=== PATIENT | female | born 1980 | race Caucasian/White ===

== ENCOUNTER 2020-04-23 10:58 | Outpatient (REF) | payer OTHER, SELFPAY ==
[2020-04-23 14:11] LABS: Hematocrit 47.2 % (37-47); Hemoglobin 15.7 g/dl (12.0-16.0); Mean Corpuscular HGB Conc 33.3 g/dl (31.0-35.0); Mean Corpuscular Hemoglobin 30.3 pg (27.0-33.0); Mean Corpuscular Volume 90.9 fL (80-98); Mean Platelet Volume 11.7 fL (9.4-12.3); Platelet Count 199 X10*3/uL (160-400); Red Blood Count 5.19 X10*6/uL (4.20-5.50); Red Cell Distribution Width 12.2 % (11.0-16.0); White Blood Count 7.4 X10*3/uL (4.8-10.8)
[2020-04-23 14:32] LABS: Alanine Aminotransferase 16 U/L (0-31); Albumin Level 4.7 g/dL (3.5-5.0); Alkaline Phosphatase 50 U/L (39-117); Anion Gap 12 (12-20); Aspartate Amino Transferase 17 U/L (5-31); Bilirubin Direct 0.2 mg/dL (0.0-0.5); Bilirubin Total 0.7 mg/dL (0.0-1.0); Blood Urea Nitrogen 11 mg/dL (9-16); Calcium 9.4 mg/dL (8.4-10.2); Carbon Dioxide 24 mmol/L (22-29); Chloride 106 mmol/L (96-108); Cholesterol 191 mg/dL; Estimated Glomerular Filt Rate > 60; Glucose Fasting 83 mg/dL (60-99); HDL Cholesterol 63 mg/dL; LDL Cholesterol Calculated 116 mg/dl; Potassium 5.2 mmol/L (3.3-5.1); Sodium 137 mmol/L (135-145); Total Protein 7.6 g/dL (6.5-8.0); Triglycerides 64 mg/dL
[2020-04-23 14:54] LABS: TSH reflex Free T4 1.17 uIU/mL (0.32-4.0)
== END 2020-04-23 10:59 | disposition home or self-care (01) ==
LOC: HO.WFDLDS 10:58
PROVIDERS: Visit Provider Hospitalist
DX: Z00.00 Encounter for general adult medical examination without abnormal findings (principal)
CPT/HCPCS: 36415; 80048; 80061; 80076; 84443; 85027

== ENCOUNTER 2021-03-05 07:18 | Emergency (ER) | payer OTHER, SELFPAY ==
[2021-03-05 07:21] VITALS: BP 112/78; PULSE 79; RESP 16; TEMP 36.9; O2SAT 99; BMI 21.2
--- NOTE | 2021-03-05 07:48 | ED_ITS ---
HPI - Back Pain/Injury General Chief Complaint: Back Pain/Injury Stated Complaint: unable to walk Time Seen by Provider: 03/05/21 07:32 Source: patient Mode of arrival: ambulatory Limitations: no limitations History of Present Illness MD elicited complaint: back pain Onset (ago): day(s) (2) Timing: constant Severity: severe Similar Symptoms Previously: No Quality: sharp Location: lumbar spine Radiation: right upper leg Exacerbating factors: movement, walking and coughing/sneezing (felt a pop after cough this AM) Relieving factors: supine Context: other (woke up this way, went to Rx NSAIDs and flexeril - went to go to work this AM and cough felt a pop and pain down R leg) Associated symptoms: denies other symptoms Treatments prior to arrival: NSAIDS Work related injury: No Related Data Previous Rx's Medication Instructions Recorded cyclobenzaprine 5 mg tablet 5 mg PO BID PRN 7 Days #14 tab 03/04/21 meloxicam 15 mg tablet 15 mg PO DAILY PRN 10 Days #10 tab 03/04/21 diazepam 5 mg tablet (Valium) 5 mg PO TID PRN #12 tab 03/05/21 famotidine 20 mg tablet (Pepcid) 20 mg PO DAILY PRN #30 tab 03/05/21 ibuprofen 600 mg tablet 600 mg PO Q6H PRN #30 tab 03/05/21 lidocaine 4 % topical patch 1 patch TOPICAL DAILY PRN #10 ea 03/05/21 Allergies Allergy/AdvReac Type Severity Reaction Status Date / Time No Known Allergies Allergy Verified 03/04/21 09:11 [No Known Allergies*] Review of Systems Review of Systems: Constitutional : No Weight loss, No Fever, No Chills, ENT/Mouth : No Hearing loss, No Ear Pain, No Nasal Congestion, No Sinus Pain, No Hoarseness, No sore throat, No Rhinorrhea, No Swallowing Difficulty Cardiovascular : No Chest Pain, No SOB Respiratory : No Cough, No Dyspnea Gastrointestinal : No Nausea, No Vomiting, No Diarrhea, No abdominal Pain, No Hematochezia, No Melena Genitourinary : No Dysuria, No Urinary Frequency, No Hematuria, No Urinary Incontinence, Musculoskeletal : positive back pain Skin : No Skin Lesions, No rash Neuro : No Weakness, No Numbness, No Paresthesias, no loss of bowel or bladder incontinence, no saddle anesthesia All other systems reviewed and are negative [facility] Past Medical History Medical History No known health problems Surgical History History of cholecystectomy Family History Family History Paternal Grandmother Uterine cancer Ovarian cancer GIST (gastrointestinal stroma tumor), malignant, colon Social History Social History (Updated 03/05/21 @ 08:25 by Gaby Morgan DO) Alcohol intake: never Patient Tobacco Use Status: Current everyday Tobacco user Cigarette Packs Per Day: 0.50 Cigarettes Per Day: 10 Use of substances other than those prescribed or required for medical reasons: Yes Advance Directives: No Advance Directives Information Provided: No Patient : No Physical Exam Vital Signs: Vital Signs: Last Vital Signs Temp 98.8 F 03/05/21 08:16 Pulse 53 03/05/21 08:16 Resp 16 03/05/21 08:16 BP 114/63 03/05/21 08:16 Pulse Ox 99 03/05/21 08:16 BMI result Body Mass Index 21.2 Appearance: Alert. Oriented X3. No acute distress. Eyes: Pupils equal, round and reactive to light. ENT: Pharynx normal. Neck: Normal inspection. Neck supple. CVS: Normal heart rate and rhythm. Pulses normal. Respiratory: No respiratory distress. Breath sounds normal. Abdomen: Soft and nontender. Back: ttp and spasm R lower lumbar area Skin: Skin warm and dry. Normal skin color. Normal skin turgor. Extremities: No lower extremity edema. No calf ttp Neuro: Oriented X 3. No motor deficit. No sensory deficit. SILT inner thigh, L5 5/5 bilaterally, + R straight leg at 30 degress, 2+ bilateral patella and achilles reflex, normal rectal tone Course Course Course Narrative: patient feels much better stable for DC can ambulate stable for DC MDM - Back Pain/Injury MDM Narrative Medical decision making narrative: 40 yo female with no sig PMH, no IVDA, no AC therapy here with c/o low back pain x 2 days no trauma. Treated at with medications went to work today felt a pop radiating down R leg - she has no b/b incontinence, no saddle anesthesia - no red flags, she is neuro intact. No CE symptoms. At this time will treat pain place on steroids. Suspect herniated disc. Discussed expectant course with patient. Discharge Plan Discharge Clinical Impression: Lumbar radiculopathy, Lumbar disc herniation Patient Disposition: Home, Self-Care Instructions: Lumbar Radiculopathy (ED) Additional Instructions: return to ED for any worsening symptoms or concerns you will need physical therapy please call your doctor as soon as possible STOP meloxicam and take motrin ONLY TAKE THE PEPCID (FAMOTIDINE DAILY WHILE ON STEROIDS) Prescriptions: New lidocaine 4 % adhesive patch,medicated 1 patch topical DAILY PRN (Reason: pain) Qty: 10 RF: 0 famotidine [Pepcid] 20 mg tablet 20 mg PO DAILY PRN (Reason: abdominal discomfort) Qty: 30 RF: 0 ibuprofen 600 mg tablet 600 mg PO Q6H PRN (Reason: pain) Qty: 30 RF: 0 diazepam [Valium] 5 mg tablet 5 mg PO TID PRN (Reason: muscle spasm) Qty: 12 RF: 0 No Action meloxicam 15 mg tablet 15 mg PO DAILY PRN (Reason: lower back pain) 10 Days Qty: 10 RF: 0 cyclobenzaprine 5 mg tablet 5 mg PO BID PRN (Reason: muscle spasm) 7 Days Qty: 14 RF: 0 Referrals: Clarisa Rivera NP [Primary Care Provider] - 2 days Stand Alone Forms: Work/School Release
[2021-03-05 08:16] VITALS: BP 114/63; PULSE 53; RESP 16; TEMP 37.1; O2SAT 99
[2021-03-05] MEDS: Lidocaine 4 % Patch ADH..PATCH 1 PATCH TRANSDERMA (09:14)
[2021-03-05] MEDS: 0.9 % Sodium Chloride 1,000 ML 999 ML IV (09:17)
[2021-03-05] MEDS: methylPREDNISolone Sod Succ 125 MG/2 ML VIAL IVPUSH (09:19)
[2021-03-05] MEDS: LORazepam 2 MG/ML VIAL 1 MG IVPUSH (09:21)
[2021-03-05] MEDS: Ketorolac Tromethamine 30 MG/ML VIAL IVPUSH (09:22)
[2021-03-05] MEDS: Famotidine/PF 20 MG/2 ML VIAL IVPUSH (09:28)
[2021-03-05 10:38] VITALS: BP 112/65; PULSE 67; RESP 16; O2SAT 99
== END 2021-03-05 10:46 | disposition home or self-care (01) ==
PROVIDERS: Emergency Provider Emergency Medicine; PCP Hospitalist
DX: M54.16 Radiculopathy, lumbar region (principal); M51.26 Other intervertebral disc displacement, lumbar region; F17.200 Nicotine dependence, unspecified, uncomplicated
CPT/HCPCS: 96361; 96374; 96375; 99284; J1885; J2060; J2930

== ENCOUNTER 2021-03-09 10:51 | Outpatient (REF) | payer OTHER, SELFPAY ==
[2021-03-09 14:52] LABS: Alanine Aminotransferase 18 U/L (0-31); Albumin Level 4.6 g/dL (3.5-5.0); Alkaline Phosphatase 50 U/L (39-117); Anion Gap 11 (12-20); Aspartate Amino Transferase 15 U/L (5-31); Bilirubin Total 0.4 mg/dL (0.0-1.0); Blood Urea Nitrogen 13 mg/dL (9-16); Carbon Dioxide 24 mmol/L (22-29); Chloride 108 mmol/L (96-108); Estimated Glomerular Filt Rate > 60; Glucose Random 83 mg/dL (60-115); Sodium 138 mmol/L (135-145); Total Protein 7.7 g/dL (6.5-8.0)
== END 2021-03-09 10:52 | disposition home or self-care (01) ==
LOC: HO.WFDLDS 10:51
PROVIDERS: Visit Provider Hospitalist
DX: M54.16 Radiculopathy, lumbar region (principal)
CPT/HCPCS: 36415; 80053

== ENCOUNTER 2021-11-17 07:51 | Emergency (ER) | payer OTHER, SELFPAY ==
[2021-11-17 08:20] VITALS: BP 144/97; PULSE 86; RESP 16; TEMP 37.2; O2SAT 98; BMI 21.6
--- NOTE | 2021-11-17 08:51 | ED.FEVER ---
HPI - Fever General Chief Complaint: Fever Stated Complaint: Covid Positive Time Seen by Provider: 11/17/21 08:34 Source: patient Mode of arrival: ambulatory Limitations: no limitations History of Present Illness MD elicited complaint: fever and other (headaches, body aches, + COVID test at home) Onset (ago): day(s) (2) Context: other (vaccinated x 3) Exacerbating factors: nothing Relieving factors: acetaminophen and ibuprofen Associated symptoms: chills, headache and other (headaches) Treatments prior to arrival fever: none Related Data Previous Rx's Medication Instructions Recorded diazepam 5 mg tablet (Valium) 5 mg PO TID PRN muscle spasm #12 03/05/21 tabs lidocaine 4 % topical patch 1 patch topical DAILY PRN pain #10 03/05/21 ea cyclobenzaprine 5 mg tablet 10 mg PO TID PRN muscle spasm 1 03/09/21 month #90 tabs gabapentin 300 mg capsule 300 mg PO BID 1 month #60 caps 03/09/21 famotidine 20 mg tablet (Pepcid) 20 mg PO DAILY PRN abdominal 03/24/21 discomfort #90 tabs ibuprofen 600 mg tablet 600 mg PO Q6H PRN for pain #90 tabs 03/24/21 ondansetron 4 mg disintegrating 4 mg PO Q8H PRN nausea and 11/17/21 tablet vomiting #20 tabs Allergies Allergy/AdvReac Type Severity Reaction Status Date / Time No Known Allergies Allergy Verified 03/24/21 11:45 [No Known Allergies*] Review of Systems Review of Systems: Constitutional : positive Fever, positive Chills, positive fatigue, positive Malaise ENT/Mouth : positive sore throat, positive runny nose Eyes: No Discharge Cardiovascular : No Chest Pain, No SOB Respiratory : No Cough, No Sputum Gastrointestinal : No Nausea, No Vomiting, No Diarrhea Genitourinary : No Dysuria, No Urinary Frequency Musculoskeletal : positive Myalgia Skin : No rash Neuro : pos Headache PMFSH Past Medical History Attestation statement: The following information was validated with the patient. Medical History No known health problems Surgical History History of cholecystectomy Family History Family History Paternal Grandmother Uterine cancer Ovarian cancer GIST (gastrointestinal stroma tumor), malignant, colon Other Mental health disorder Substance use disorder Social History Social History Housing: House Alcohol intake: never Patient Tobacco Use Status: Current everyday Tobacco user Cigarette Packs Per Day: 0.50 Cigarettes Per Day: 10 Advance Directives: No Advance Directives Information Provided: Yes Current occupational status: employed Physical Exam Vital Signs: Vital Signs: Last Vital Signs Temp 99 F 11/17/21 08:20 Pulse 86 11/17/21 08:20 Resp 16 11/17/21 08:20 BP 144/97 H 11/17/21 08:20 Pulse Ox 98 11/17/21 08:20 O2 Del Method 11/17/21 08:20 BMI result Body Mass Index 21.6 Appearance: Alert. Oriented X3. No acute distress. Eyes: Pupils equal, round and reactive to light. ENT: Pharynx normal. Neck: Normal inspection. Neck supple. CVS: Normal heart rate and rhythm. Pulses normal. Respiratory: No respiratory distress. Breath sounds normal. Abdomen: Soft and non-tender. Skin: Skin warm and dry. Normal skin color. Normal skin turgor. Extremities: No lower extremity edema. No calf ttp Neuro: Oriented X 3. No motor deficit. No sensory deficit. MDM - Fever MDM Narrative Medical decision making narrative: 41 yo female with hx of migraines otherwise no medical problems vaccinated x 3 for COVID here with 2 days of symptoms - headaches, not feeling well, fevers - has normal O2 sats, COVID + test at home today. Wants confirmatory test. Declines Paxlovid after discussing possible side effects. Does not have any other qualifying conditions. Stable for outpatient treatment. Given precautions to return. Discharge Plan Discharge Clinical Impression: COVID-19 Patient Disposition: Home, Self-Care Instructions: COVID-19 (Coronavirus Disease 2019) (ED) Additional Instructions: return to ED for any worsening symptoms or concerns if you become so short of breath that you cannot walk to your own bathroom seek immediate care tylenol and motrin for pain, stay hydrated quarantine, protect others COVID + test Prescriptions: New ondansetron 4 mg tablet,disintegrating 4 mg PO Q8H PRN (Reason: nausea and vomiting) Qty: 20 0RF No Action ibuprofen 600 mg tablet 600 mg PO Q6H PRN (Reason: for pain) Qty: 90 1RF lidocaine 4 % adhesive patch,medicated 1 patch topical DAILY PRN (Reason: pain) Qty: 10 0RF Rx Instructions: may leave on for up to 12 hrs diazepam [Valium] 5 mg tablet 5 mg PO TID PRN (Reason: muscle spasm) Qty: 12 0RF cyclobenzaprine 5 mg tablet 10 mg PO TID PRN (Reason: muscle spasm) 30 Days Qty: 90 0RF Rx Instructions: 1 tab for moderate spasms and 2 tabs for severe spasma gabapentin 300 mg capsule 300 mg PO BID 30 Days Qty: 60 0RF Rx Instructions: I advised patient that she can take 1 at bedtime. I am recommending that she can increase to 2 at bedtime after 5 days of tolerating the medication. famotidine [Pepcid] 20 mg tablet 20 mg PO DAILY PRN (Reason: abdominal discomfort) Qty: 90 1RF Stand Alone Forms: Work/School Release
[2021-11-17 09:22] LABS: COVID-19 Test Positive (Negative); IDNOW Serial# 9DB6401D
--- NOTE | 2021-11-17 09:49 | PC.NURSE ---
PT EVALUATED BY DR FRANCO. PLAN IS FOR DC HOME. PT AGREEABLE TO PLAN. PT AWAKE, ALERT AND ORIENTED X 3. SKIN WARM AND DRY. RESP UNLABORED. DENIES N/V PRESENTLY SPEAKING IN FULL CLEAR SENTENCES.
== END 2021-11-17 09:51 | disposition home or self-care (01) ==
PROVIDERS: Emergency Provider Emergency Medicine; PCP Hospitalist
DX: U07.1 COVID-19 (principal); R51.9 Headache, unspecified; F17.210 Nicotine dependence, cigarettes, uncomplicated
CPT/HCPCS: 87635; 99282; 99283

== ENCOUNTER 2023-02-28 11:03 | Outpatient (REF) | payer OTHER, SELFPAY ==
[2023-02-28 16:53] LABS: CT PCR NOT DETECTED (Not Detect.); NG PCR NOT DETECTED (Not Detect.)
[2023-03-01 13:00] LABS: BV Int Neg Control Negative (Negative); BV Int Pos Control Positive (Positive)
[2023-03-04 02:04] LABS: HPV mRNA E6/E7 rflx Not Detected (Not Detected)
== END 2023-02-28 11:04 | disposition home or self-care (01) ==
LOC: HO.LNP 11:03
PROVIDERS: PCP Hospitalist; Visit Provider Advanced Practice Midwife
DX: Z12.4 Encounter for screening for malignant neoplasm of cervix (principal); Z11.51 Encounter for screening for human papillomavirus (HPV); Z20.2 Contact with and (suspected) exposure to infections with a predominantly sexual mode of transmission
CPT/HCPCS: 0353U; 87480; 87510; 87624; 87660; 88142

== ENCOUNTER 2023-02-28 11:03 | Outpatient (AMB) | payer OTHER, SELFPAY ==
--- NOTE | 2023-02-28 11:12 | MHC.OFFVIS ---
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 She has had 1 daughter 22 years ago exactly today. [facility] vag[facility] with no complications. She gets regular periods sometimes 27 sometimes 28 sometimes 29 days. She gets bad lower back discomfort with her periods and she has been told her uterus is retroverted. She is in a relationship with a girlfriend and they live together. They both smoke cigarettes every now and then she thinks about quitting but then she thinks she has been smoking so long that the damage is done. 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 Her last Pap smear and stock worker exam was probably 7 years ago in some place in [place]. [facility] Medical History No known health problems Surgical History History of cholecystectomy Family History Paternal Grandmother Uterine cancer Ovarian cancer GIST (gastrointestinal stroma tumor), malignant, colon Other Mental health disorder Substance use disorder Social History Housing: House Alcohol intake: never Patient Tobacco Use Status: Current everyday Tobacco user Cigarette Packs Per Day: 0.50 Cigarettes Per Day: 10 Current occupational status: employed Female Reproductive History Menstrual Age of Menarche: 12 Duration of menses: 3-5 days Date of last menstrual period: 02/08/23 control method: none Total pregnancies: 1 Full term: 1 Number of Living Children: 1 Physical Exam Vital Signs: Last Vital Signs BP 122/80 02/28/23 11:13 BMI result Body Mass Index 22.0 Const General: healthy appearing, comfortable, no acute distress, well developed and alert Nutritional Appearance: average body habitus Orientation/consciousness: patient oriented x3 Limitations: no limitations HEENT Head: Yes normocephalic Neck Neck: Yes normal visual inspection Thyroid: Thyroid normal Chest Chest palpation & inspection: normal inspection of the chest Breast/axilla inspection: normal inspection of the breasts and normal inspection of the axillae Breast/axilla palpation: normal palpation of the breasts and normal palpation of the axillae Resp Effort & Inspection: normal respiratory effort GI Inspection: Yes normal to inspection, No Abdominal wall edema and No distended Palpation (GI): Soft to palpation and nontender Other: External exam within normal limits vagina pink moist. Cervix multiparous firmly closed pink smooth mobile nontender. Uterus is small retroverted nontender. Adnexa nontender not enlarged good tone with Kegel discharge is clear and scant. General: Yes bladder normal to palpation External Female Exam: normal external appearance and normal appearance of the urethra Speculum Exam - Vagina: normal appearance of the vagina, normal palpation and normal vaginal discharge Speculum Exam - Cervix: normal appearance of the cervix, normal palpation and nontender Bimanual exam- vagina & uterus: normal bimanual exam, normal palpation, uterine size normal, bladder normal to palpation, consistency normal, normal palpation, uterine mobility normal, uterine shape normal, No Cervical tenderness present, non-tender and no cervical motion tenderness Bimanual Exam- Adnexa, other: normal adnexae, no masses, normal and No adnexal tenderness Skin Other: Hand slightly dusky consistent with smoking. Neuro General: patient oriented x3 Assessment & Plan Assessment & Plan (1) Smoker: Code(s): F17.200 - Nicotine dependence, unspecified, uncomplicated (2) Cervical cancer screening: Code(s): Z12.4 - Encounter for screening for malignant neoplasm of cervix (3) Breast cancer screening: Code(s): Z12.39 - Encounter for other screening for malignant neoplasm of breast (4) Well woman exam with routine gynecological exam: Code(s): Z01.419 - Encounter for gynecological examination (general) (routine) without abnormal findings (5) Encounter for screening examination for sexually transmitted disease: Code(s): Z11.3 - Encounter for screening for infections with a predominantly sexual mode of transmission Plan -----Discussed in this visit the following: healthy balanced diet, regular and consistent exercise, getting recommended health screens, doing the best she can for her particular health concerns, kegel exercises, pap smear screening and followup recommendations, mammography screening and SBE, normal changes in cycles in her life stage--- . Mammogram ordered. Discussed readiness for smoking cessation. Discussed motivation and risks of smoking and that yes long-term damage may have been done but she would improve her health by quitting. She does think about. 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 Discussed the normal range of menstrual cycles and she sounds like she is completely normal and when she has kept track that reassured her some of the same. She feels she gets about 10,000 steps a day at her job. Offered other testing for STIs via blood work but she is not interested and does not feel she needs to. Orders: Orders Bacterial Vaginosis Panel Today Z11.3 - Encounter for screening for infections with a predominantly sexual mode of transmission CT NG by PCR Today Z11.3 - Encounter for screening for infections with a predominantly sexual mode of transmission Pap Smear Today Z12.4 - Encounter for screening for malignant neoplasm of cervix MM tomosynthesis screening BI Today F17.200 - Nicotine dependence, unspecified, uncomplicated, Z01.419 - Encounter for gynecological examination (general) (routine) without abnormal findings, Z11.3 - Encounter for screening for infections with a predominantly sexual mode of transmission, Z12.31 - Encounter for screening mammogram for malignant neoplasm of breast, Z12.39 - Encounter for other screening for malignant neoplasm of breast, Z12.4 - Encounter for screening for malignant neoplasm of cervix Coding Level of Care Code New Pt Prev Care 40-64y([id number]) Diagnoses Smoker F17.200 Cervical cancer screening Z12.4 Breast cancer screening Z12.39 Well woman exam with routine gynecological exam Z01.419 Encounter for screening examination for sexually transmitted disease Z11.3
[2023-02-28 11:13] VITALS: BP 122/80; BMI 22.0
== END 2023-02-28 11:51 | disposition home or self-care (01) ==
PROVIDERS: PCP Hospitalist; Visit Provider Advanced Practice Midwife
DX: Z01.419 Encounter for gynecological examination (general) (routine) without abnormal findings (principal); F17.200 Nicotine dependence, unspecified, uncomplicated; Z12.4 Encounter for screening for malignant neoplasm of cervix; Z12.39 Encounter for other screening for malignant neoplasm of breast; Z11.3 Encounter for screening for infections with a predominantly sexual mode of transmission
CPT/HCPCS: 99386

== ENCOUNTER 2023-07-04 08:24 | Outpatient (AMB) | payer OTHER, SELFPAY ==
--- NOTE | 2023-07-04 08:40 | MHC.PC.OV ---
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 Is last menstrual period known: No Patient : No Allergies No Known Allergies [No Known Allergies*] Allergy (Verified 07/04/23 09:00) Medication List - Last Reconciled 07/04/23 by MAIRA Mckeon No Known Home Meds Tobacco use date assessed: 07/04/23 Dental Screening Dental Screen Date: 07/04/23 Did you have a dental visit in the last 12 months?: Yes Did you have a dental problem in the last 6 months where you did not have access to dental care?: No Was dental information given to patient?: Patient has dentist HPI HPI Comments History of Present Illness Details 42-year-old female with chronic GERD, current smoker, chronic back pain, headaches, MDD, MOLLY Status post cholecystectomy Health maintenance Pap 02/28/2023 within normal limits Mammo over due, reports she as an order just needs to make 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 This started in March of 2023. She reports that the urine looks normal in the toilet. With no blood. However when she wipes she notices nicolasa blood. She denies any vaginal discharge or any blood on her underpants or pads. She reports normal periods. However she can not remember the date of her last menstrual period. Reports that she is not sexually active with men. Therefore there is no chance of . She does have positive BV diagnosis in February of 2023. This was not treated. She has not currently having any symptoms. Her Pap smear is up-to-date and was within normal limits with the exception of some inflammatory cells. She is unfortunately a current smoker. She denies any nausea, vomiting, abdominal pain,back pain. Admit some mild cramping. Reports that her weight is stable. [facility] Medical History No known health problems Surgical History History of cholecystectomy Family History Paternal Grandmother Uterine cancer Ovarian cancer GIST (gastrointestinal stroma tumor), malignant, colon Other Mental health disorder Substance use disorder Social History Housing: House Alcohol intake: never Patient Tobacco Use Status: Current everyday Tobacco user Cigarette Packs Per Day: 0.50 Cigarettes Per Day: 10 Years Smoked: 25 e-Cigarette/Vaping Use: Never Used Current occupational status: employed Current occupation: [employer] Current occupational exposures/hazards: No Cognitive needs: No Hearing needs: No Vision needs: No Female Reproductive History Menstrual Age of Menarche: 12 Questionnaire PHQ-9 Over the last 2 weeks, how often have you been bothered by any of the following problems? 1. Little interest or pleasure in doing things: several days 2. Feeling down, depressed, or hopeless: several days 3. Trouble falling or staying asleep, or sleeping too much: nearly every day 4. Feeling tired or having little energy: nearly every day 5. Poor appetite or overeating: nearly every day 6. Feeling bad about yourself - or that you are a failure or have let yourself or your family down: several days 7. Trouble concentrating on things, such as reading the newspaper or watching television: more than half the days 8. Moving or speaking so slowly that other people could have noticed. Or the opposite - being so fidgety or restless that you have been moving around a lot more than usual: several days 9. Thoughts that you would be better off or of hurting yourself in some way: not at all Total score: 15 Depression Screening Interpretation: Positive Depression Screening Follow-up: Follow-up Visit Requested Depression Screening Done: Yes 34116 - PHQ-9 Billing: Yes Source: Developed by Drs. Joce Burleson, Alla Enriquez, Andriy Power and colleagues, with an educational samuel from [employer]. Thrive Questionnaire Date Thrive assessed: 07/04/23 I am a: Patient What is your living situation today?: I have a steady place to live Within the past 12 months, did the food you bought not last and you didn't have the money to get more?: Never true Within the past 12 months, did you worry whether your food would run out before you got money to buy more?: Never true Do you have trouble paying for medicines?: No Do you have trouble getting transportation to medical appointments?: No Do you have trouble paying your heating and electricity bill?: No Do you have trouble taking care of your child, family member or friend?: No Do you have trouble with day-to-day activities such as bathing, preparing meals, shopping, managing finances, etc.?: No Are you currently unemployed and looking for a job?: No Are you interested in more education?: No Please select the resources that you would like help with: None Currently or been in a relationship where the following occur: no concerns reported THRIVE Score: 0 AUDIT C Alcohol Use Questionnaire (AUDIT-C) 1. How often do you have a drink containing alcohol?: Never 3. How often do you have six or more drinks on one occasion?: Never Total Score: 0 Score Reviewed/Action Taken: Yes MOLLY-7 AMB Questionnaire MOLLY-7 Date MOLLY - 7 assessed: 07/04/23 Feeling nervous, anxious, or on edge: 3 = Nearly every day Not being able to stop or control worryin = Nearly every day Worrying too much about different things: 3 = Nearly every day Trouble relaxin = Nearly every day Being so restless that it is hard to sit still: 1 = Several days Becoming easily annoyed or irritable: 2 = More than half the days Feeling afraid as if something awful might happen: 3 = Nearly every day Total MOLLY-7 score (0-4 normal; 5-9 mild; 10-14 moderate; 15-21 severe): 18 Source: Developed by Drs. Joce Burleson, Alla Enriquez, Andriy Power and colleagues, with an educational samuel from [employer]. MOLLY-7 Assessment Billing MOLLY-7 Assessment Tool: MOLLY-7 Assessment 95060 Review of Systems Const All systems reviewed & are unremarkable except as noted in HPI and below Physical exam (Primary Care) Vital Signs: Last Vital Signs Temp 98.4 F 07/04/23 08:47 Pulse 57 07/04/23 08:47 Resp 12 07/04/23 08:47 BP 102/63 07/04/23 08:47 Pulse Ox 99 07/04/23 08:47 Oxygen Delivery Method Room Air 07/04/23 08:47 BMI result Body Mass Index 21.1 Tobacco/Smoking Status: Tobacco use Status Tobacco use date assessed 07/04/23 07/04/23 08:51 Patient Tobacco Use Status Current everyday Tobacco 07/04/23 08:51 e-Cigarette/Vaping Use Never Used 07/04/23 08:51 Are you ready to quit: No Tobacco cessation counseling provided: Yes Items discussed: Other Relapse Prevention: discussed the importance of a supportive environment, discussed extending NRT, discussed negative mood or depression after quitting, weight gain after smoking is common and discussed dietary, exercise and/or lifestyle changes Number of minutes spent counselin CPT code: 52621 - 4-10 Minutes PHQ-9: PHQ-9 Score PHQ-9: Total score 07/04/23 09:15 Depression Screening Interpretation: Positive Depression Screening Follow-up: Follow-up Visit Requested Thrive Assessment: Date of Thrive Assessment Date Thrive assessed 07/04/23 07/04/23 08:51 Currently or been in a relationship where the following occur: no concerns reported Const Other: awake alert NAD scleras and conjuntiva clear bilat MMM RRR LS CTAB Abd soft, nontender, normoactive BS No CVAT bilat Assessment and Plan Assessment & Plan (1) Hematuria: Comment: Labs from today show a normal CBC, with mild elevation in H&H in the setting of tobacco use, normal CMP, normal A1c, normal iron studies, normal B12, normal TSH, normal lipid profile, normal UA and microalbumin. Urine cytology is pending. Will check imaging and bring back for close fu Code(s): R31.9 - Hematuria, unspecified Qualifiers: Hematuria type: unspecified type Qualified Code(s): R31.9 - Hematuria, unspecified (2) Smoker: Code(s): F17.200 - Nicotine dependence, unspecified, uncomplicated (3) Bacterial vaginosis: Comment: hold off on treatment at this time given vaginal US order Code(s): N76.0 - Acute vaginitis; B96.89 - Other specified bacterial agents as the cause of diseases classified elsewhere Plan RTO IN 2-3 WEEKS TO FU ON IMAGING AND SX. This note is constructed using voice recognition software. While every effort has been made to ensure accuracy in strategic planning specialist, still errors may have been included Sometimes, these errors may affect the content or meaning of the given sentence . Total time spent caring for the patient today was 50 minutes. This includes time spent before the visit reviewing the chart, time spent during the visit, and time spent after the visit on documentation Orders: Orders Lipid Panel Today R31.9 - Hematuria, unspecified TSH reflex Free T4 Today R31.9 - Hematuria, unspecified Microalbumin, Random (w Creat) Today R31.9 - Hematuria, unspecified UA CC w/rflx Micro + Cult Today R31.9 - Hematuria, unspecified US pelvic and transvaginal Today F17.200 - Nicotine dependence, unspecified, uncomplicated, R31.9 - Hematuria, unspecified Hemoglobin A1c Today R31.9 - Hematuria, unspecified Comprehensive Tyler. Panel Fast Today R31.9 - Hematuria, unspecified Vitamin D 1,25 dihydroxy Today R31.9 - Hematuria, unspecified Complete Blood Count no Diff Today R31.9 - Hematuria, unspecified Vitamin B12 and Folate Today R31.9 - Hematuria, unspecified IRON PROFILE Today R31.9 - Hematuria, unspecified Urine Cytology Today F17.200 - Nicotine dependence, unspecified, uncomplicated, R31.9 - Hematuria, unspecified Patient Instructions: Smoking Cessation How to Quit There are a lot of ways to quit smoking and many resources to help you. Family members, friends, and co-workers may be supportive or encouraging, but to be successful the desire and commitment to quit must be your own. Most people who have been able to successfully quit smoking made at least one unsuccessful attempt in the past. Try not to view past attempts to quit as failures, but rather as learning experiences. Stopping smoking or using smokeless tobacco is difficult, but anyone can do it. Know the symptoms to expect when you stop. Common symptoms include: ? An intense craving for nicotine ? Anxiety, tension, restlessness, frustration, or impatience ? Difficulty concentrating ? Drowsiness or trouble sleeping, as well as bad dreams and nightmares ? Drowsiness and trouble sleeping ? Headaches ? Increased appetite and weight gain ? Irritability or depression How severe your symptoms are depends on how long you smoked and how many cigarettes you smoked each day. Feel ready to quit? ? First and foremost, set a quit date and quit completely on that day. Before your quit date, you may begin reducing your cigarette use. But remember, there is no safe level of cigarette smoking. ? List the reasons why you want to quit. Include both short- and long-term benefits. ? Identify the times you are most likely to smoke. For example, do you tend to smoke when feeling stressed or down? When out at night with friends? While drinking coffee or alcohol? When bored? While driving? Right after a meal or sex? During a work break? While watching TV or playing cards? When you are with other smokers? ? Let all of your friends, family, and co-workers know of your plan to stop smoking and your quit date. Just being aware that they know what you're going through can be helpful, especially when you are grumpy. ? Get rid of all your cigarettes just before the quit date, and clean out anything that smells like smoke, such as clothes and furniture. Make a plan about what you will do instead of smoking at those times when you are most likely to smoke. ? Be as specific as possible. For example, drink tea instead of coffee -- tea may not trigger the desire for a cigarette. Or, take a walk when you feel stressed. ? Remove ashtrays and cigarettes from the car. Place pretzels or hard candies there instead. Pretend-smoke with a straw. ? Find activities that focus your hands and mind but are not taxing or fattening. Computer games, solitaire, knitting, sewing, and crossword puzzles may help. ? If you normally smoke after eating, find other ways to end a meal. Play a tape or CD, eat a piece of fruit, get up and make a phone call, or take a walk (a good distraction that also gutiérrez calories). Make other changes in your lifestyle. ? Change your daily schedule and habits. Eat at different times or eat several small meals instead of three large ones. Sit in a different chair or even a different room. ? Satisfy your oral habits by eating celery or other low-calorie snack, chewing sugarless gum, or sucking on a cinnamon stick. ? Go to public places and restaurants where smoking is prohibited or restricted. ? Eat regular meals and don't eat too much candy or sweet things. ? Get more exercise. Take walks or ride a bike. Exercise helps relieve the urge to smoke. Set short-term quitting goals and reward yourself when you meet them. ? Every day, put the money you normally spend on cigarettes in a jar. Then buy something pleasurable after a period of time. ? Try not to think about all the days ahead you will need to avoid smoking. Take it one day at a time. ? Even one puff or one cigarette will make your desire for more cigarettes even stronger. However, it is normal to make mistakes. So even if you have one cigarette, you don't need to take the next one. Other tips to help you quit smoking and stick to it: ? Enroll in a smoking cessation program (hospitals, health departments, community centers, and work sites often offer programs). Learn about self-hypnosis or other techniques. ? Ask your health care provider about prescription medications that are safe and appropriate for you. ? Find out about nicotine patches, gum, and sprays. The [place] [employer]'s web site -- www.cancer.org -- is an excellent resource for smokers who are trying to quit, and the [employer] [place] [employer] can help some smokers kick the habit. Above all, don't get discouraged if you aren't able to quit smoking the first time. Nicotine addiction is a hard habit to break. Try something different next time. Develop new strategies, and try again. Many people take several attempts to finally kick the habit. Coding Level of Care Code Est Pt Level 5 (83634) Diagnoses Hematuria, unspecified type R31.9 Hematuria type: unspecified type Smoker F17.200 Bacterial vaginosis N76.0; B96.89 Additional Codes MOLLY-7 Assessment Billing - MOLLY-7 Assessment Tool: MOLLY-7 Assessment 12596 ([id number]) Vital Signs *Quality* - CPT code: 22016 - 4-10 Minutes ([id number])
[2023-07-04 08:47] VITALS: BP 102/63; PULSE 57; RESP 12; TEMP 36.9; O2SAT 99; BMI 21.1
== END 2023-07-04 10:13 | disposition home or self-care (01) ==
PROVIDERS: PCP Hospitalist; Visit Provider Nurse Practitioner Family
DX: R31.9 Hematuria, unspecified (principal); F17.200 Nicotine dependence, unspecified, uncomplicated; N76.0 Acute vaginitis; B96.89 Other specified bacterial agents as the cause of diseases classified elsewhere
CPT/HCPCS: 99215

== ENCOUNTER 2023-07-04 10:04 | Outpatient (REF) | payer OTHER, SELFPAY ==
[2023-07-04 11:08] LABS: Urine Cytology See Pathology rpt
[2023-07-04 11:25] LABS: Hemoglobin 16.4 g/dl (12.0-16.0); Mean Corpuscular HGB Conc 34.2 g/dl (31.0-35.0); Mean Corpuscular Hemoglobin 30.7 pg (27.0-33.0); Mean Corpuscular Volume 89.9 fL (80.0-98.0); Mean Platelet Volume 11.2 fL (9.4-12.3); Platelet Count 225 X10*3/uL (160-400); Red Blood Count 5.34 X10*6/uL (4.20-5.50); Red Cell Distribution Width 12.6 % (11.0-16.0); White Blood Count 7.6 X10*3/uL (4.8-10.8)
[2023-07-04 11:32] LABS: Appearance Urine Clear; Color Urine Yellow; Glucose Urine UA Negative (Negative); Leukocyte Esterase Urine Negative (Negative); Nitrite Urine Negative (Negative); PH 6.5 (5.0-9.0); Specific Gravity - Urine <= 1.005 (1.005-1.025); Urine Blood Negative (Negative); Urine Ketones Negative (Negative); Urine Protein Negative (Neg-Trace)
[2023-07-04 11:44] LABS: Estimated Average Glucose 94 mg/dL; Hemoglobin A1c % 4.9 % (<6.0)
[2023-07-04 11:53] LABS: Alanine Aminotransferase 18 U/L (0-31); Albumin Level 4.5 g/dL (3.5-5.0); Alkaline Phosphatase 56 U/L (39-117); Anion Gap 11 (12-20); Aspartate Amino Transferase 16 U/L (5-31); Bilirubin Total 0.5 mg/dL (0.0-1.0); Blood Urea Nitrogen 12 mg/dL (9-16); Calcium 9.6 mg/dL (8.4-10.2); Carbon Dioxide 26 mmol/L (22-29); Chloride 107 mmol/L (96-108); Cholesterol 169 mg/dL (<200); Estimated Glomerular Filt Rate > 60; Glucose Fasting 79 mg/dL (60-99); HDL Cholesterol 52 mg/dL (>40); Iron 70 mcg/dL (30-160); LDL Cholesterol Calculated 105 mg/dL (<100); Percent Iron Saturation 25 % (15-50); Potassium 4.5 mmol/L (3.3-5.1); Sodium 139 mmol/L (135-145); Total Iron Binding Capacity 283 mcg/dL (228-428); Total Protein 7.5 g/dL (6.5-8.0); Triglycerides 63 mg/dL (<150); Unsaturated Iron Binding 213 ug/dL
[2023-07-04 12:10] LABS: Creatinine Urine 23.67 mg/dL; Microalbumin Urine < 5.0 mg/L
[2023-07-04 12:11] LABS: TSH reflex Free T4 1.21 uIU/mL (0.32-4.0)
[2023-07-04 12:14] LABS: Folate 6.2 ng/mL (> or = 4.0); Vitamin B12 606 pg/mL (200-900)
[2023-07-08 01:03] LABS: VITAMIN D (1,25 OH) D3 46 pg/mL; Vit D (1,25-Dihydroxy) Total 46 pg/mL (18-72); Vitamin D (1,25 OH) D2 <8 pg/mL
== END 2023-07-04 10:05 | disposition home or self-care (01) ==
LOC: HO.WFDLDS 10:04
PROVIDERS: Visit Provider Nurse Practitioner Family
DX: Z13.6 Encounter for screening for cardiovascular disorders (principal); R31.9 Hematuria, unspecified; F17.210 Nicotine dependence, cigarettes, uncomplicated
CPT/HCPCS: 36415; 80053; 80061; 81003; 82043; 82570; 82607; 82652; 82746; 83036; 83540; 84443; 85027; 88112

== ENCOUNTER 2023-08-02 14:00 | Outpatient (REF) | payer OTHER, SELFPAY ==
--- NOTE | ~2023-08-02 | US_ITS ---
EXAMINATION: US PELVIS CLINICAL INFORMATION: Hematuria, abnormal uterine cytology, bacterial vaginosis. Last menstrual period June 21, 2023. Bladder included per order. COMPARISON: None available. TECHNIQUE: Ultrasound of the pelvis is performed using both transabdominal and transvaginal transducers along with Doppler. Transvaginal imaging is performed due to inadequate visualization transabdominally. FINDINGS: The uterus measures 5.0 x 3.3 x 3.2 cm. Uterus is retroverted. Endometrial thickness is 5 mm. Small amount of free fluid. Left ovary measures 2.8 x 1.6 x 2.2 cm, volume 5.2 mL and is unremarkable. Right ovary measures 3.3 x 2.2 x 2.1 cm, volume 8.1 mL. A 1.3 x 0.7 x 1.0 cm right ovarian cyst with small internal cysts, likely physiologic. There is no specific indication for additional imaging at this time. Bladder: Prevoid bladder volume 342 mL. Postvoid volume 19.5 mL. Bilateral ureteral jets were visualized. Bladder is well-distended. US/US pelvic complete IMPRESSION: 1. Endometrial thickness is 5 mm. 2. Small amount of free fluid. 3. Unremarkable urinary bladder.
== END 2023-08-02 14:01 | disposition home or self-care (01) ==
LOC: HO.HMGCX 14:00
PROVIDERS: PCP Nurse Practitioner Family; Visit Provider Nurse Practitioner Family
DX: R31.9 Hematuria, unspecified (principal); F17.200 Nicotine dependence, unspecified, uncomplicated
CPT/HCPCS: 76856

== ENCOUNTER 2023-08-19 12:21 | Outpatient (AMB) | payer OTHER, SELFPAY ==
--- NOTE | 2023-08-19 12:25 | A.OFFPC_ITS ---
Vital Signs 08/19/23 12:27 Height 5 ft 3 in Weight 123 lb 2 oz BMI 21.8 BP 124/85 Blood Pressure Location Lt brachial Position Sitting Respiration 12 Pulse 85 Pulse Source Pulse Oximeter Temp 98.2 F Temp Source Oral Pulse Oximetry (%) 97 Oxygen Delivery Method Room Air Intake Visit Reasons: 3 mon follow up and cpe Intake Note: Physical and ultrasound results. Is last menstrual period known: No Allergies No Known Allergies [No Known Allergies*] Allergy (Verified 08/19/23 12:41) Medication List - Last Reconciled 08/19/23 by ERIC Mckeon- No Known Home Meds Tobacco use date assessed: 08/19/23 Dental Screening Dental Screen Date: 07/04/23 HPI HPI Comments History of Present Illness Details 42-year-old female with chronic GERD, cu rrent smoker, chronic back pain, headaches Status post cholecystectomy Health maintenance Pap 02/28/2023 within normal limits Mammo - order placed Eyes - last exam about 3 years ago. 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 The below results were reviewed with her and her partner today 06/2023 vitamin-D, TSH, iron profile, B12 , CMP, CBC, lipid profile normal Urine cytology 07/04/2023 atypical urothelial cells: Examination of a monolayer preparation slide shows many benign squamous cells, scattered benign urothelial cells, with few atypical urothelial cells with increased nuclear:cytoplasmic ratios. There are also scattered inflammatory cells and occasional red blood cell 07/2023 US: he uterus measures 5.0 x 3.3 x 3.2 cm. Uterus is retroverted. Endometrial thickness is 5 mm. Small amount of free fluid. Left ovary measures 2.8 x 1.6 x 2.2 cm, volume 5.2 mL and is unremarkable. Right ovary measures 3.3 x 2.2 x 2.1 cm, volume 8.1 mL. A 1.3 x 0.7 x 1.0 cm right ovarian cyst with small int ernal cysts, likely physiologic. There is no specific indication for additional imaging at this time. Bladder: Prevoid bladder volume 342 mL. Postvoid volume 19.5 mL. Bilateral ureteral jets were visualized. Bladder is well-distended. Since last office visit she has no longer having any bleeding. She continues to smoke. Discuss a referral to Urology to further evaluate the slightly abnormal cytology. Declined at this time. Poor sleep, sleeping 3 hours only. Trouble falling and staying asleep. Uses melatonin and sleep aides w/o effect Partner also endorses lots of anxiety, hard time run winding. Patient states that she was on medications in the past and that just change the way that she presented, felt like she was not herself. Really does not want something that she asked to take every single day. The plan will be to trial hydroxyzine 25 mg. Take a half a tablet to 2 tablets p.r.n. at bedtime to help with insomnia and anxiety. migraines with visual aura- causes vomiting, can last 2-3 days some times. Light sensitivity. Has been having some childhood. Reports CT scan during childhood in which there was a cyst noted in her brain. No current Neurology follow up. She has interested in a neurology referral. Uses APAP/NSAID/otc analgesics. Occurs about 2 times per week. Tried elavil in the past for prevention - this caused lots of sleepiness. The plan will be to refer her to Neurology, give her a prescription for Zofran as well as Imitrex. She should use the Imitrex and Zofran at the 1st onset of her headache. Advised to check at the Herbarium to see about natural remedies to help as a preventative such as magnesium or feverfew. Encouraged her to schedule an eye exam as well as her mammogram. [facility] Medical History (Updated 08/19/23 @ 13:18 by Disha Santacruz, [facility]) Headache No known health problems Surgical History History of cholecystectomy Family History Paternal Grandmother Uterine cancer Ovarian cancer GIST (gastrointestinal stroma tumor), malignant, colon Other Mental health disorder Substance use disorder Social History Housing: House Alcohol intake: never Patient Tobacco Use Status: Current everyday Tobacco user Cigarette Packs Per Day: 0.50 Cigarettes Per Day: 10 Years Smoked: 25 e-Cigarette/Vaping Use: Never Used Current occupational status: employed Current occupation: [employer] Current occupational exposures/hazards: No Cognitive needs: No Hearing needs: No Vision needs: No Female Reproductive History Menstrual Age of Menarche: 12 Questionnaire Thrive Questionnaire Date Thrive assessed: 07/04/23 MOLLY-7 AMB Questionnaire MOLLY-7 Date MOLLY - 7 assessed: 07/04/23 Source: Developed by Drs. Joce Burleson, Alla Enriquez, Andriy Power and colleagues, with an educational samuel from [employer]. Review of Systems Const Details: Constitutional: Denies fever. Skin: Denies rash. Eye: Denies eye pain. ENMT: Denies sore throat and nasal congestion. Respiratory: Denies shortness of breath and cough. Gastrointestinal: Denies nausea, vomiting or abdominal pain. Cardiovascular: Denies chest pain and syncope. Genitourinary: Denies dysuria. Musculoskeletal: Denies back pain and extremity pain. Neurologic: Denies confusion, and weakness. Psychiatric: Denies suicidal thoughts and substance abuse. Allergy/ Immunologic: Denies impaired immunity. Physical exam (Primary Care) Vital Signs: Last Vital Signs Temp 98.2 F 08/19/23 12:27 Pulse 85 08/19/23 12:27 Resp 12 08/19/23 12:27 BP 124/85 08/19/23 12:27 Pulse Ox 97 08/19/23 12:27 Oxygen Delivery Method Room Air 08/19/23 12:27 BMI result Body Mass Index 21.8 Tobacco/Smoking Status: Tobacco use Status Tobacco use date assessed 08/19/23 08/19/23 12:29 Patient Tobacco Use Status Current everyday Tobacco 08/19/23 12:29 e-Cigarette/Vaping Use Never Used 08/19/23 12:29 Are you ready to quit: Yes Tobacco cessation counseling provided: Yes Items discussed: Other Relapse Prevention: discussed the importance of a supportive environment, discussed extending NRT, discussed negative mood or depression after quitting, weight gain after smoking is common and discussed dietary, exercise and/or lifestyle changes CPT code: Less than 3 minutes Thrive Assessment: Date of Thrive Assessment Date Thrive assessed 07/04/23 08/19/23 12:29 Const Other: General: Well developed, well nourished, in no acute distress. Appears stated age. Head: Normocephalic, atraumatic. Eyes: Pupils are equal, round and reactive to light and accommodation. Conjunctivae are clear. Vision grossly normal. Patient did see spots and half to blink several times after the eye exam. Her vision did returned to normal after about a minute or 2. Ears: TMs clear AU, EACS WNL Nose: Patent, without discharge. Mouth: There are no ulcers or lesions noted. No inflammation, no post nasal drip, no plaques nor exudates. Neck: Supple, no adenopathy or thyromegaly. Lungs: Clear to auscultation bilaterally. No rales, rhonchi or wheeze noted. Good air flow in all beltrán. Heart: Regular rate and rhythm. No murmurs, click, rubs or gallops are noted. Abdomen: Bowel sounds present in all quadrants. The abdomen is soft, nontender, with no masses or organomegaly noted. No hernias are noted. Musculoskeletal: Joints are nontender, without swelling, redness, or effusions. Range of motion is observed to be normal. Pulses: Peripheral pulses are equal and palpable bilaterally. Extremities: No clubbing, cyanosis nor edema is noted. Neurologic: Gait and station normal. Cranial Nerves 2-[address] rength grossly symmetrical and intact. No sensory loss. Balance normal. Skin: No rashes, ulcers, or lesions noted. Turgor is good. Skin color is good. Hair and nails are without abnormalities. Psych: Normal eye contact, affect and mood appropriate, and normal interactions. Patient is alert and appropriate to context. Extremities: No clubbing, cyanosis or edema. Assessment and Plan Assessment & Plan (1) Encounter for general adult medical examination with abnormal findings: Code(s): Z00.01 - Encounter for general adult medical examination with abnormal findings (2) Migraine with aura: Code(s): G43.109 - Migraine with aura, not intractable, without status migrainosus Qualifiers: Status migrainosus presence: without status migrainosus Intractability: not intractable Qualified Code(s): G43.109 - Migraine with aura, not intractable, without status migrainosus (3) Smoker: Code(s): F17.200 - Nicotine dependence, unspecified, uncomplicated (4) Generalized anxiety disorder: Code(s): F41.1 - Generalized anxiety disorder (5) Insomnia disorder, with non-sleep disorder mental comorbidity, persistent: Code(s): F51.05 - Insomnia due to other mental disorder Plan: This note is constructed using voice recognition software. While every effort has been made to ensure accuracy in service now developer, still errors may have been included Sometimes, these errors may affect the content or meaning of the given sentence . Additional time spent caring for the patient today, above and beyond, was 20 minutes to address problem(s). This includes time spent before the visit reviewing the chart, time spent during the visit, and time spent after the visit on documentation Orders: Referrals Neurology Referral G43.109 - Migraine with aura, not intractable, without status migrainosus Medications: New hydroxyzine HCl 50 mg (2 x 25 mg) PO BEDTIME PRN 60 tabs 0RF INSOMNIA sumatriptan succinate (Imitrex) take 1 tab at onset of headache; if no relief may repeat 1 tab after at least 2 hrs; max = 4 tabs/24 hr PO 14 tabs 1RF ondansetron HCl 4 mg PO Q8H PRN 30 tabs 1RF nausea and vomiting Patient Instructions: Discuss a referral to Urology to further evaluate the slightly abnormal cytology. Declined at this time. trial hydroxyzine 25 mg. Take a half a tablet to 2 tablets p.r.n. at bedtime to help with insomnia and anxiety. refer her to Neurology, give her a prescription for Zofran as well as Imitrex. She should use the Imitrex and Zofran at the 1st onset of her headache. Advised to check at the Herbarium to see about natural remedies to help as a preventative such as magnesium or feverfew. Encouraged her to schedule an eye exam as well as her mammogram. Return to the office in 6 weeks to follow up on your headaches, anxiety and insomnia. Sooner as needed Smoking Cessation How to Quit There are a lot of ways to quit smoking and many resources to help you. Family members, friends, and co-workers may be supportive or encouraging, but to be successful the desire and commitment to quit must be your own. Most people who have been able to successfully quit smoking made at least one unsuccessful attempt in the past. Try not to view past attempts to quit as failures, but rather as learning experiences. Stopping smoking or using smokeless tobacco is difficult, but anyone can do it. Know the symptoms to expect when you stop. Common symptoms include: ? An intense craving for nicotine ? Anxiety, tension, restlessness, frustration, or impatience ? Difficulty concentrating ? Drowsiness or trouble sleeping, as well as bad dreams and nightmares ? Drowsiness and trouble sleeping ? Headaches ? Increased appetite and weight gain ? Irritability or depression How severe your symptoms are depends on how long you smoked and how many cigarettes you smoked each day. Feel ready to quit? ? First and foremost, set a quit date and quit completely on that day. Before your quit date, you may begin reducing your cigarette use. But remember, there is no safe level of cigarette smoking. ? List the reasons why you want to quit. Include both short- and long-term benefits. ? Identify the times you are most likely to smoke. For example, do you tend to smoke when feeling stressed or down? When out at night with friends? While drinking coffee or alcohol? When bored? While driving? Right after a meal or sex? During a work break? While watching TV or playing cards? When you are with other smokers? ? Let all of your friends, family, and co-workers know of your plan to stop smoking and your quit date. Just being aware that they know what you're going through can be helpful, especially when you are grumpy. ? Get rid of all your cigarettes just before the quit date, and clean out anything that smells like smoke, such as clothes and furniture. Make a plan about what you will do instead of smoking at those times when you are most likely to smoke. ? Be as specific as possible. For example, drink tea instead of coffee -- tea may not trigger the desire for a cigarette. Or, take a walk when you feel stressed. ? Remove ashtrays and cigarettes from the car. Place pretzels or hard candies there instead. Pretend-smoke with a straw. ? Find activities that focus your hands and mind but are not taxing or fattening. Computer games, solitaire, knitting, sewing, and crossword puzzles may help. ? If you normally smoke after eating, find other ways to end a meal. Play a tape or CD, eat a piece of fruit, get up and make a phone call, or take a walk (a good distraction that also gutiérrez calories). Make other changes in your lifestyle. ? Change your daily schedule and habits. Eat at different times or eat several small meals instead of three large ones. Sit in a different chair or even a different room. ? Satisfy your oral habits by eating celery or other low-calorie snack, chewing sugarless gum, or sucking on a cinnamon stick. ? Go to public places and restaurants where smoking is prohibited or restricted. ? Eat regular meals and don't eat too much candy or sweet things. ? Get more exercise. Take walks or ride a bike. Exercise helps relieve the urge to smoke. Set short-term quitting goals and reward yourself when you meet them. ? Every day, put the money you normally spend on cigarettes in a jar. Then buy something pleasurable after a period of time. ? Try not to think about all the days ahead you will need to avoid smoking. Take it one day at a time. ? Even one puff or one cigarette will make your desire for more cigarettes even stronger. However, it is normal to make mistakes. So even if you have one cigarette, you don't need to take the next one. Other tips to help you quit smoking and stick to it: ? Enroll in a smoking cessation program (hospitals, health departments, community centers, and work sites often offer programs). Learn about self-hypnosis or other techniques. ? Ask your health care provider about prescription medications that are safe and appropriate for you. ? Find out about nicotine patches, gum, and sprays. The [place] [employer]'s web site -- www.cancer.org -- is an excellent resource for smokers who are trying to quit, and the [employer] [place] [employer] can help some smokers kick the habit. Above all, don't get discouraged if you aren't able to quit smoking the first time. Nicotine addiction is a hard habit to break. Try something different next time. Develop new strategies, and try again. Many people take several attempts to finally kick the habit. Health screenings for women You should visit your health care provider from time to time, even if you are healthy. The purpose of these visits is to: Screen for medical issues Assess your risk for future medical problems Encourage a healthy lifestyle Update vaccinations and other preventive care services Help you get to know your provider in case of an illness Information Even if you feel fine, you should still see your provider for regular checkups. These visits can help you avoid problems in the future. For example, the only way to find out if you have high blood pressure is to have it checked regularly. High blood sugar and high cholesterol levels also may not have any symptoms in the early stages. A simple blood test can check for these conditions. There are specific times when you should see your provider or receive specific health screenings. The [place] Preventive Services Task Force publishes a list of recommended screenings. Below are screening guidelines for women ages 18 to 39. BLOOD PRESSURE SCREENING Your blood pressure should be checked at least once every 3 to 5 years if: Your blood pressure is in the normal range (top number less than 120 mm Hg and bottom number less than 80 mm Hg) You don't have risk factors for high blood pressure Ask your provider if you need your blood pressure checked more often if: The top number is 120 to 129 mm Hg or the bottom number is 70 to 79 mm Hg You have diabetes, heart disease, kidney problems, are overweight, or have certain other health conditions You have a first-degree relative with high blood pressure You are Black You had high blood pressure during a If the top number is 130 mm Hg or greater or the bottom number is 80 mm Hg or greater, this is considered stage 1 hypertension. Schedule an appointment with your provider to learn how you can reduce your blood pressure. Watch for blood pressure screenings in your area. Ask your provider if you can stop in to have your blood pressure checked. BREAST CANCER SCREENING Experts do not agree about the benefits of breast self-exams in finding breast cancer or saving lives. Talk to your provider about what is best for you. A screening mammogram is not recommended for most women under age 40. Your provider may discuss and recommend mammograms, MRI scans, or ultrasounds if you have an increased risk for breast cancer, such as: A mother or sister who had breast cancer at a young age (most often starting screening earlier than the age the close relative was diagnosed) You carry a high-risk genetic marker CERVICAL CANCER SCREENING Cervical cancer screening should start at age 21 years unless your provider advises otherwise. After the first test: Women ages 21 through 29 should have a Pap test every 3 years. Exoprts do not agree on whether HPV testing is recommended for this age group. Women ages 30 through 65 should be screened with either a Pap test every 3 years or the HPV test every 5 years or both tests every 5 years (called cotesting ). Women who have been treated for precancer (cervical dysplasia) should continue to have Pap tests for 20 years after treatment or until age 65, whichever is longer. If you have had your uterus and cervix removed (total hysterectomy), and you have not been diagnosed with cervical cancer or precancer (high grade cervical neoplasia), you do not need cervical cancer screening. CHOLESTEROL SCREENING Cholesterol screening should begin at: Age 45 for women with no known risk factors for coronary heart disease Age 20 for women with known risk factors for coronary heart disease Repeat cholesterol screening should take place: Every 5 years for women with normal cholesterol levels More often if changes occur in lifestyle (including weight gain and diet) More often if you have diabetes, heart disease, kidney problems, or certain other conditions DIABETES SCREENING You should be screened for diabetes starting at age 35 and then repeated every 3 years if you have no risk factors for diabetes. Screening may need to start earlier and be repeated more often if you have other risk factors for diabetes, such as: You have a first degree relative with diabetes. You are overweight or have obesity. You have high blood pressure, prediabetes, or a history of heart disease. Screening for diabetes should be done if you are planning to become and you are overweight and have other risk factors such as high blood pressure. DENTAL EXAM Go to the dentist once or twice every year for an exam and cleaning. Your dentist will evaluate if you need more frequent visits. EYE EXAM Have an eye exam every 5 to 10 years before age 40. If you have vision problems, have an eye exam every 2 years or more often if recommended by your provider. You should have an eye exam that includes an examination of your retina (back of your eye) at least every year if you have diabetes. IMMUNIZATIONS Commonly needed vaccines include: Flu shot: get one every year. COVID-19 vaccine: ask your provider what is best for you. Tetanus-diphtheria and acellular pertussis (Tdap) vaccine: have one at or after age 19 as one of your tetanus-diphtheria vaccines if you did not receive it as an adolescent. Tetanus-diphtheria: have a booster (or Tdap) every 10 years. Varicella vaccine: receive 2 doses if you never had chickenpox or the varicella vaccine. Hepatitis B vaccine: receive 2, 3, or 4 doses, depending on your exact circumstances. Measles, mumps, and rubella (MMR) vaccine: receive 1 to 2 doses if you are not already immune to MMR. Your provider can tell you if you are immune. Ask your provider about the human papillomavirus (HPV) vaccine if: You have not received the HPV vaccine in the past You have not completed the full vaccine series (you should catch up on this shot) Ask your provider if you should receive other immunizations if you have certain health problems that increase your risk for some diseases such as pneumonia. INFECTIOUS DISEASE SCREENING Women who are sexually active should be screened for chlamydia and gonorrhea up until age 25. Women 25 years and older should be screened for chlamydia and gonorrhea if at high risk. Screening for hepatitis C: All adults ages 18 to 79 should get a one-time test for hepatitis C. people should be screened at every . Screening for human immunodeficiency virus (HIV): All people ages 15 to 65 should get a one-time test for HIV. Depending on your lifestyle and medical history, you may also need to be screened for infections such as syphilis and HIV, as well as other infections. PHYSICAL EXAM All adults should visit their provider from time to time, even if they are healthy. The purpose of these visits is to: Screen for disease Assess your risk of future medical problems Encourage a healthy lifestyle Update your vaccinations and other preventive care services Maintain a relationship with a provider in case of an illness Your height, weight, and BMI should be checked at every exam. During your exam, your provider may ask you about: Depression and anxiety Diet and exercise Alcohol and tobacco use Safety issues, such as using seat belts, smoke detectors, and intimate partner violence Your medicines and risk for interactions SKIN SELF-EXAM Your provider may check your skin for signs of skin cancer, especially if you're at high risk, such as if you: Have had skin cancer before Have close relatives with skin cancer Have a weakened immune system OTHER SCREENING Talk with your provider about colon cancer screening if you have a strong family history of colon cancer or polyps, or if you have had inflammatory bowel disease or polyps yourself. Routine bone density screening of women under 40 is not recommended. Coding Level of Care Code Est Pt Level 3 (20574) Est Pt Prev Care 40-64y(13254) Diagnoses Encounter for general adult medical examination with abnormal findings Z00.01 Migraine with aura and without status migrainosus, not intractable G43.109 Status migrainosus presence: without status migrainosus Intractability: not intractable Smoker F17.200 Generalized anxiety disorder F41.1 Insomnia disorder, with non-sleep disorder mental comorbidity, persistent F51.05
[2023-08-19 12:27] VITALS: BP 124/85; PULSE 85; RESP 12; TEMP 36.8; O2SAT 97; BMI 21.8
== END 2023-08-19 13:11 | disposition home or self-care (01) ==
LOC: HO.HMGFM 12:21
PROVIDERS: PCP Nurse Practitioner Family; Visit Provider Nurse Practitioner Family
DX: Z00.01 Encounter for general adult medical examination with abnormal findings (principal); G43.109 Migraine with aura, not intractable, without status migrainosus; F17.200 Nicotine dependence, unspecified, uncomplicated; F41.1 Generalized anxiety disorder; F51.05 Insomnia due to other mental disorder
CPT/HCPCS: 99213; 99396

== ENCOUNTER 2024-09-06 11:22 | Outpatient (AMB) | payer OTHER, SELFPAY ==
[2024-09-06 11:29] VITALS: BP 118/72; BMI 20.8
--- NOTE | 2024-09-06 11:29 | MHC.OFFVIS ---
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 Complaining of right breast lump premenstrual that results after no other associated concerned Last Pap/HPV was negative in 03/12 No previous screening Mammogram PFSH Medical History Headache No known health problems Surgical History History of cholecystectomy Family History Paternal Grandmother Uterine cancer Ovarian cancer GIST (gastrointestinal stroma tumor), malignant, colon Mother HTN (hypertension) Mental health disorder Other Substance use disorder Social History Household Members Other:: Female partner Housing: House Alcohol intake: never Patient Tobacco Use Status: Current everyday Tobacco user Cigarette Packs Per Day: 0.50 Cigarettes Per Day: 7 Years Smoked: 25 e-Cigarette/Vaping Use: Never Used Current occupational status: employed 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 Current occupational exposures/hazards: No Sexually active: Yes Sexual orientation: Lesbian/Freire/Homosexual Gender identity: Female Cognitive needs: No Hearing needs: No Vision needs: No Female Reproductive History Menstrual Age of Menarche: 12 Duration of menses: 3-5 days Date of last menstrual period: 08/22/24 Total pregnancies: 1 Full term: 1 Number of Living Children: 1 Date of last pap smear: 02/28/23 Review of Systems Const All systems reviewed & are unremarkable except as noted in HPI and below Card Reports as per HPI Resp Reports as per HPI GI Reports as per HPI and Reports no additional complaints Reports as per HPI Physical Exam Vital Signs: Last Vital Signs BP 118/72 09/06/24 11:29 BMI result Body Mass Index 20.8 Const General: cooperative, healthy appearing and comfortable Chest Chest palpation & inspection: normal inspection of the chest and normal palpation of entire chest wall Breast/axilla inspection: inspection of breasts abnormal (Right breast 2 cm from the nipple at 11 o'clock, left breast within normal) and normal inspection of the axillae Breast/axilla palpation: normal palpation of the breasts, normal palpation of the axillae and no axillary lymphadenopathy Resp Effort & Inspection: normal respiratory effort Auscultation: clear to auscultation bilaterally Percussion: percussion normal Cardio Palpation: normal PMI Rate: regular rate Rhythm: regular rhythm Heart sounds: no murmurs and no rubs Peripheral pulses: Peripheral pulses 2+ throughout GI Inspection: Yes normal to inspection Palpation (GI): Soft to palpation, nontender, no guarding, not rigid and No hepatosplenomegaly present Percussion: Yes normal to percussion Auscultation: normal bowel sounds Rectal Exam - Female: deferred General: Yes bladder normal to palpation External Female Exam: No lesion Speculum Exam - Vagina: normal appearance of the vagina, normal palpation, normal vaginal discharge and not erythematous Speculum Exam - Cervix: normal appearance of the cervix and normal palpation Bimanual exam- vagina & uterus: normal bimanual exam, normal palpation, uterine size normal, bladder normal to palpation, consistency normal and normal palpation Bimanual Exam- Adnexa, other: normal adnexae, no masses and no tenderness Assessment & Plan Assessment & Plan (1) Well woman exam: Code(s): Z01.419 - Encounter for gynecological examination (general) (routine) without abnormal findings Category: Medical Plan: Cotesting not indicated this year. Mammogram ordered. Counseled the patient about the recommended dietary allowance of 1000 mg of Calcium & 600 IU of vitamin D. The patient was instructed to perform monthly self-breast exams and to schedule an annual exam in a year; All questions answered and the patient verbalized understanding. Instructed the patient to schedule annual exam in a year (2) Breast lump on right side at 11 o'clock position: Code(s): N63.11 - Unspecified lump in the right breast, upper outer quadrant Category: Medical Plan: Discussed with the patient the finding on Breast exam (breast lump) .The differential diagnosis includes but not limited to lump/cyst/pre cancer/cancer or dense breast tissue. The work up includes breast US and diagnostic mammogram and referred the patient for surgical breast consult. Orders: Orders MM tomosynthesis diagnostic BI Today N63.11 - Unspecified lump in the right breast, upper outer quadrant US breast RT complete Today N63.11 - Unspecified lump in the right breast, upper outer quadrant MM tomosynthesis screening BI Today Z12.31 - Encounter for screening mammogram for malignant neoplasm of breast Referrals General Surgery Referral N63.11 - Unspecified lump in the right breast, upper outer quadrant Coding Level of Care Code Est Pt Prev Care 40-64y(34165) Diagnoses Well woman exam Z01.419 Breast lump on right side at 11 o'clock position N63.11
== END 2024-09-06 11:59 | disposition home or self-care (01) ==
LOC: HO.HWS 11:22
PROVIDERS: PCP Nurse Practitioner Family; Visit Provider Obstetrics & Gynecology
DX: Z01.419 Encounter for gynecological examination (general) (routine) without abnormal findings (principal); N63.11 Unspecified lump in the right breast, upper outer quadrant
CPT/HCPCS: 99396; 99459

== ENCOUNTER 2025-01-02 12:59 | Outpatient (AMB) | payer OTHER, SELFPAY ==
[2025-01-02 14:15] VITALS: BP 112/70; PULSE 76; TEMP 37.1; O2SAT 99; BMI 22.3
--- NOTE | 2025-01-02 14:15 | AM.OFFWIN_ITS ---
Intake Vital Signs 01/02/25 14:15 Height 5 ft 2 in Weight 122 lb BMI 22.3 BP 112/70 Blood Pressure Location Lt brachial Position Sitting Pulse 76 Pulse Source Pulse Oximeter Temp 98.8 F Temp Source Oral Pulse Oximetry (%) 99 Oxygen Delivery Method Room Air Intake Visit Reasons: EP-strep throat Patient Tobacco Use Status: Current everyday Tobacco user Allergies No Known Allergies (No Known Allergies*) Allergy (Verified 01/02/25 14:19) Do you need a note to return to daycare/school/sports/work: No HPI HPI Comments History of Present Illness Details History - The patient is a 44-year-old female pr esenting with severe throat pain. - The throat pain started yesterday and has worsened today, localized to the lef t side. - She has pain with swallowing. - She has pain in the left ear pain, bod y aches, and chills. - The patient denies fever but reports a headache and ear pain. - There is no cough or shortness of barbie th reported. - The patient is a smoker. - She has no sick contacts or travel. - She denies fever, CP, SOB, abd pain, n /v/d. Physical Exam General: Cooperative, healthy appearing, comfortable and no acute distress Orientation/consciousness: Patient oriented x3 Limitations: No limitations Head: Normal to inspection Ears: Hearing grossly normal bilaterally, external ears normal and TM's normal bilaterally. Nose: Normal external nose present, normal nares present, and no nasal discharge present. Face and sinus: Sinuses nontender to palpation. Mouth: Normal oral and palatal mucosa present and moist mucous membranes noted. Throat: Tonsils normal. Uvula is midline. Posterior oropharynx with erythema and no exudates. Eyes: Appearance normal, both eyes and all related structures Neck: Normal visual inspection, full ROM. No lymphadenopathy noted. Respiratory: Clear to auscultation bilaterally. Normal respiratory effort, able to speak in complete sentences. No respiratory distress, not tachypneic, no tripod positioning and no use of accessory muscles. Cardiovascular: Regular rate and rhythm. Normal S1 and S2 Skin: No rashes or lesions noted Patient was informed and verbally consented to the use of an ambient scribe for clinic note documentation during this visit [facility] Medical History Headache No known health problems Surgical History History of cholecystectomy Family History Paternal Grandmother Uterine cancer Ovarian cancer GIST (gastrointestinal stroma tumor), malignant, colon Mother HTN (hypertension) Mental health disorder Other Substance use disorder Social History Household Members Other:: Female partner Housing: House Alcohol intake: never Patient Tobacco Use Status: Current everyday Tobacco user Cigarette Packs Per Day: 0.50 Cigarettes Per Day: 7 Years Smoked: 25 e-Cigarette/Vaping Use: Never Used Current occupational status: employed 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 Current occupational exposures/hazards: No Sexual orientation: Lesbian/Freire/Homosexual Gender identity: Female Cognitive needs: No Hearing needs: No Vision needs: No Female Reproductive History Menstrual Age of Menarche: 12 Review of Systems Const All systems reviewed & are unremarkable except as noted in HPI and below Physical Exam Vital Signs: Last Vital Signs Temp 98.8 F 01/02/25 14:15 Pulse 76 01/02/25 14:15 BP 112/70 01/02/25 14:15 Pulse Ox 99 01/02/25 14:15 Oxygen Delivery Method Room Air 01/02/25 14:15 BMI result Body Mass Index 22.3 Results AMB Rapid Strep AMB Rapid Strep Negative Last Edit by Lucila Constantino MA on 01/02/25 14:35 Results Reviewed Results Reviewed: Laboratory Last Values Strep Scn Rapid Clinic Negative 01/02/25 14:32 Assessment & Plan Assessment & Plan (1) Sore throat: Code(s): J02.9 - Acute pharyngitis, unspecified Plan Most likely strep vs viral illness rapid strep in the office was negative plan - will treat her based on her Centor critera score of 2 - A respiratory panel will be conducted to rule out viral causes. - will call her with the results and can adjust her treatment based on the results - Empirical antibiotic therapy initiated pending results. - tylenol or motrin as needed for pain - follow up with PCP - advised smoking cessation Orders: Orders AMB Rapid Strep Screen Today Z13.9 - Encounter for screening, unspecified Resp Pathogen Panel - [facility] [place] Today J06.9 - Acute upper respiratory infection, unspecified Medications: New amoxicillin 500 mg PO Q12H 20 tabs 0RF Coding Level of Care Code Est Pt Level 3 (63249) Diagnoses Sore throat J02.9
--- OUTSIDE RECORDS SUMMARY | 2025-01-02 16:35 | XMS_ITS ---
Author Name [facility] Organization Unknown Care Team Organization Name Specialty Phone Email Start Date End [facility] 01/02/2025
== END 2025-01-02 14:56 | disposition home or self-care (01) ==
PROVIDERS: PCP Nurse Practitioner Family; Visit Provider Physician Assistant Medical
DX: Z13.9 Encounter for screening, unspecified (principal); J02.9 Acute pharyngitis, unspecified

== ENCOUNTER 2025-01-02 12:59 | Outpatient (REF) | payer OTHER, SELFPAY ==
[2025-01-03 09:02] LABS: Chlamydia pneumoniae PCR Not Detected (Not Detect.); Coronavirus 229E PCR Not Detected (Not Detect.); Coronavirus HKU1 PCR Not Detected (Not Detect.); Coronavirus NL63 PCR Not Detected (Not Detect.); Coronavirus OC43 PCR Not Detected (Not Detect.); RSV PCR Not Detected (Not Detect.); Rhino/Enterovirus PCR Not Detected (Not Detect.)
[2025-01-03 09:09] LABS: Influenza A H1 PCR Not Detected (Not Detect.); Influenza A H1-2009 PCR Not Detected (Not Detect.); Influenza A H3 PCR Not Detected (Not Detect.); SARS-CoV-2 PCR Not Detected (Not Detect.)
== END 2025-01-02 13:00 | disposition home or self-care (01) ==
LOC: HO.LNP 12:59
PROVIDERS: PCP Nurse Practitioner Family; Visit Provider Physician Assistant Medical
DX: J02.9 Acute pharyngitis, unspecified (principal); F17.210 Nicotine dependence, cigarettes, uncomplicated; Z13.89 Encounter for screening for other disorder
CPT/HCPCS: 87633; 87880